=== PATIENT | female | born 1945 | race Caucasian/White ===

== ENCOUNTER 2017-05-27 16:38 | Emergency (ER) | payer BC, MEDICARE ==
[~2017-05-27] VITALS: Ht 162.6 cm; Wt 70.3 kg
[~2017-05-27 16:38] MED LIST: ADULT LOW DOSE81 MG PO; CALTRATE 600600 MG PO; CENTRUM SILVER1 EAC1 PO; FORMULA E400 UNIT PO; IBUPROFEN600 MG PO; LYSINE1000 MG PO; SUPER B COMPLE150 MG PO; TRAZODONE HCL100 MG PO; VITAMIN C500 M1 PO; VITAMIN D1000 UNI1 PO; ZOFRAN ODT4 MG PO
[2017-05-27] MEDS ORDERED: NORCO 5-325 TA1 EACH PO (17:29)
== END 2017-05-27 17:43 | disposition home or self-care (01) ==
LOC: ED 16:38
DX: S90.01XA Contusion of right ankle, initial encounter (principal); S80.11XA Contusion of right lower leg, initial encounter; Z88.8 Allergy status to other drugs, medicaments and biological substances; Z79.899 Other long term (current) drug therapy; Z79.82 Long term (current) use of aspirin; X58.XXXA Exposure to other specified factors, initial encounter
CPT/HCPCS: 73590; 73610; 99283

== ENCOUNTER 2024-09-20 14:27 | Emergency (ER) | payer OTHER, MEDICARE ==
[~2024-09-20] VITALS: Ht 162.6 cm
[~2024-09-20 14:27] MED LIST changes: +ATORVASTATIN CA20 MG PO; +HYDROCODON-ACE1 EA10 PO; +MAPAP325 MG PO; +METOPROLOL SUCC25 MG PO; +NORCO 5-325 TA1 EACH PO; +OXYCODON-ACETA1 EAC2 PO
[2024-09-20] MEDS ORDERED: ACETAMINOPHEN 500 MG TAB PO ONE (15:00)
[2024-09-20] MEDS ORDERED: LORazepam 0.5 MG TAB PO ONE (15:00)
[2024-09-20 15:58] VITALS: BP 151/71
== END 2024-09-20 15:59 | disposition home or self-care (01) ==
LOC: ED 14:27
DX: S16.1XXA Strain of muscle, fascia and tendon at neck level, initial encounter (principal); S51.812A Laceration without foreign body of left forearm, initial encounter; S20.219A Contusion of unspecified front wall of thorax, initial encounter; Z91.048 Other nonmedicinal substance allergy status; Z79.899 Other long term (current) drug therapy; V43.52XA Car driver injured in collision with other type car in traffic accident, initial encounter
CPT/HCPCS: 71045; 72040; 73090; 99284-25; A9270